=== PATIENT | female | born 1960 | race Caucasian/White ===

== ENCOUNTER 2021-05-11 06:58 | Day surgery (SDC) | payer BC ==
[~2021-05-11] VITALS: Ht 170.2 cm; Wt 76.2 kg
[~2021-05-11 06:58] MED LIST: MULTIVITAMI9 PO
[2021-05-11 08:34] VITALS: BP 122/68
== END 2021-05-11 08:45 | disposition home or self-care (01) | DRG 951 ==
LOC: ENDO 06:58
PROVIDERS: ATTEND Surgery
PROC: 0DJD8ZZ Inspection of Lower Intestinal Tract, Via Natural or Artificial Opening Endoscopic (ICD-10-PCS; principal; 2021-05-11)
DX: Z12.11 Encounter for screening for malignant neoplasm of colon (principal)